=== PATIENT | male | born 1970 | race Hispanic/Latino ===

== ENCOUNTER 2024-03-24 11:09 | Emergency (ER) | payer MEDICAID, SELFPAY ==
[2024-03-24 11:11] VITALS: BP 108/74; PULSE 68; RESP 16; TEMP 36.5; O2SAT 99
--- NOTE | 2024-03-24 11:52 | CT_ITS ---
HISTORY: Kidney Stone. TECHNIQUE: Helically acquired images were obtained of the abdomen and pelvis without oral or IV contrast. A radiation dose optimization technique was used for this scan. 446 images. COMPARISON: None. FINDINGS: LOWER CHEST: Mild atelectasis and air trapping in the lung bases. BOWEL: Bowel nondilated. No periappendiceal inflammation. Colonic diverticulosis without focal pericolonic inflammatory change. PERITONEUM: No significant free fluid. LIVER: Unremarkable. GALLBLADDER/BILIARY TREE: Gallbladder present. SPLEEN/PANCREAS/ADRENAL GLANDS: Nonenlarged. KIDNEYS AND URETERS: No nephrolithiasis or obstructing ureteral calculus. VESSELS: No abdominal aortic aneurysm. PELVIC ORGANS: No pelvic masses. BONES: Mild degenerative change. CT/Abdomen/Pelvis without Cont IMPRESSION: Negative examination for renal stone. Colonic diverticulosis without acute diverticulitis. Electronically Signed: Kamille Richard MD at 13:05 EDT ,
--- NOTE | 2024-03-24 11:57 | EDS_ITS ---
HPI History of Present Illness Chief Complaint: Flank Pain Informant: patient Narrative Narrative: Formal [place]araguan interpretation service used. 2 months nontraumatic back pain with increasing urine frequency. No fevers or chills. Intermittent dizziness. No nausea or vomiting. No abdominal pain. History of diabetes on Januvia. Reported thought it would get better. No radicular pain. No allergies and medications. Appendectomy 8 [address] ago[address] He drove himself here. Also reports discomfort into his right shoulder. Denies abdominal pain. PFSH PFSH Allergy/AdvReac Type Severity Reaction Status Date / Time No Known Allergies Allergy Verified 03/24/24 11:11 Social History Smoking Status: Unknown if ever smoked ROS ROS ED Constitutional Constitutional ED: Denies chills, fever(s) or sweats Eyes Eyes: Denies change in vision ENT ENT ED: Denies dysphagia or sore throat Cardiovascular Cardiovascular: Denies chest pain, leg edema, palpitations or racing heartbeat Respiratory/Chest Respiratory/Chest: Denies cough, dyspnea or dyspnea on exertion Gastrointestinal Gastrointestinal: Denies abdominal pain, diarrhea, nausea or vomiting Genitourinary Genitourinary ED: Reports urinary frequency; Denies dysuria or hematuria Musculoskeletal Musculoskeletal: Reports back pain; Denies extremity pain or neck pain Integumentary Denies rash or wounds Neurologic Neurologic: Denies headache(s), paresthesias or weakness EXAM Physical Exam Const Vital Signs: 03/24/24 11:11 03/24/24 13:10 Temperature 97.7 F L Temperature Source Temporal Pulse Rate 68 78 Respiratory Rate 16 14 Blood Pressure 108/74 Blood Pressure Mean 85 Pulse Ox 99 99 Oxygen Delivery Method Room Air Positive well nourished and well developed Constitutional Narrative: Nontoxic General Appearance ED: well developed and NAD HEENT Reports moist mucous membranes normocephalic and atraumatic Eyes EOMs intact bilaterally and conjunctivae normal General Eye ED: Yes normal appearance of both eyes Neck no lymphadenopathy and supple General: Negative for tenderness Chest Wall Chest: Negative for tenderness Resp normal respiratory effort and normal air movement Effort and Inspection: symmetric chest movement; Negative for respiratory distress Cardio regular rate, regular rhythm and no murmurs Peripheral Pulses: pulses 2+ throughout GI normal to inspection, nondistended, normoactive bowel sounds and non-tender GI Narrative: Negative Bañuelso's or McBurney's tenderness. Palpation: Negative for guarding or rebound tenderness present Back/Spine no thoracic nor lumbar tenderness Back/Spine Narrative: Mild pain across upper flank region left greater than right. No rash. Straight leg test negative. Extremity normal to inspection General Extremety ED: Negative for edema or tenderness General Extremity: Negative for edema Neuro oriented x3 and no sensory deficits noted Sensorium / Orientation: awake and alert Skin no rashes or lesions noted and no wounds MDM MDM MDM Narrative Medical decision making narrative: Interventions / MDM: Differential diagnosis: Diabetes, urine frequency Diagnosis considered but do not suspect: DKA, normal gap, UTI however labs normal. Kidney stone however CT negative. My EKG interpretation: N/A Imaging independently reviewed and interpreted by myself: Flank CT: No acute process. Diverticulosis without diverticulitis. Also read by radiology. No renal stones noted. External documents reviewed: N/A Test considered but not ordered:N/A ED course: Vital stable nontoxic. 2 months with worsening urine frequency with pain. Basic labs urine and urine culture. Flank CT ordered. Toradol ordered for symptom control. 1345: Results all discussed with translation service with the patient. CT scan negative labs only noting hyperglycemia of 257 glucose. Gap was normal. White count 4.9. Creatinine 0.72. Urine without infection. Noted glucose with his elevated blood glucose. Discussed further he does not have a PCP here. He is on Janumet prescribed by his physician in [place]. It is sent here for him. He is requesting urology follow-up. He does have healthcare coverage. Discussed his sugars normally 140 back home. He will possibly need added medications for his diabetes. He does report mild polydipsia also. He is not in DKA. Provided prescription for Motrin to help with his back. He is given follow-up as an outpatient. All questions were answered. Re-evaluation: stable Disposition discussed with patient/family/significant other: Patient Case discussed with consulting clinician: N/A This note was generated with [employer] dictation software. It may contain incorrect words, spelling, and punctuation that were not noted in checking the note before signing. Lab Data Attestation: I reviewed the patient's lab results. Labs: Laboratory Results - last 24 hr 03/24/24 03/24/24 11:23 12:05 WBC 4.9 RBC 4.79 Hgb 14.2 Hct 41.2 MCV 86.0 MCH 29.6 MCHC 34.5 RDW Std Deviation 38.7 RDW Coeff of Pavel 12.2 Plt Count 199 MPV 11.4 Immature Gran % (Auto) 0.200 Neut % (Auto) 62.0 Lymph % (Auto) 24.3 Giles % (Auto) 9.1 Eos % (Auto) 4.0 Baso % (Auto) 0.4 Absolute Neuts (auto) 3.1 Absolute Lymphs (auto) 1.20 Nucleated RBC % 0 Sodium 139 Potassium 3.6 Chloride 104 Carbon Dioxide 31.0 Anion Gap 5 BUN 17 Creatinine 0.72 Est GFR (MDRD) Af Amer 148 Est GFR (MDRD) Non-Af 123 BUN/Creatinine Ratio 23.7 H Glucose 257 H Calcium 9.0 Urine Color Yellow Urine Clarity Sl. Cloudy Urine pH 8.0 Ur Specific [place] 1.015 Urine Protein Negative Urine Glucose (UA) 1000 H Urine Ketones Negative Urine Occult Blood Negative Urine Nitrite Negative Urine Bilirubin Negative Urine Urobilinogen Normal Ur Leukocyte Esterase Negative Urine RBC 0 SEEN Urine WBC 0 SEEN Ur Squamous Epith Cells 0 SEEN Amorphous Sediment 2+ Urine Bacteria 0 SEEN Urine Mucus 0 SEEN Radiography Diagnostic Testing: Clinical Impression(s) from Imaging Studies Abdomen/Pelvis CT 03/24/24 11:52 IMPRESSION: Negative examination for renal stone. Colonic diverticulosis without acute diverticulitis. Electronically Signed: Kamille Richard MD at 13:05 EDT Reading Location ID and State: [facility] / [place] Tel , Service support , Discharge Plan Triage Chief Complaint: Flank Pain ED Provider: Tony Ramirez Dx/Rx/DC Orders Clinical Impression: Urine frequency, Hyperglycemia due to diabetes mellitus, Back pain Instructions: Diabetes Bladder Control, Treatment of Diabetes Primary Care Provider: Care Physician,No Primary Referrals: Nikita Poole MD [Med Staff - Facing Cutting Machine Operator] - 1 Week Yves Carty MD [Med Staff - Active Staff] - 1-2 Weeks Care Physician,No Primary [Primary Care Provider] - Activity Restrictions/Additional Instructions: CT scan negative. Urine negative for infection. Labs glucose 257. Creatinine 0.72. Print Language: Nicaraguan Disposition Disposition: Home, Self Care
[2024-03-24 11:59] LABS: Absolute Neutrophil Count 3.1 X10^3/uL (2.0-7.7); Basophil# 0.02 X10^3/uL; Basophil% 0.4 % (0-1); Hematocrit 41.2 % (40-54); Hemoglobin 14.2 g/dL (13.0-16.5); Lymphocyte % 24.3 % (19-41); Mean Corp Hgb Conc 34.5 g/dL (32-36); Mean Corpuscular Hgb 29.6 pg (27.0-32.0); Mean Platelet Vol. 11.4 fl (6.2-12.0); Monocyte# 0.45 X10^3/uL; Monocyte% 9.1 % (0-10); NRBC Flagged by Analyzer 0 % (0-5); Neutrophil # 3.06 X10^3/uL (2.7-7.7); Platelet Count 199 K/mm3 (150-450); RBC Distribution Width CV 12.2 % (11.6-14.6); RBC Distribution Width SD 38.7 fl (35.1-43.9); Red Blood Count 4.79 M/mm3 (4.6-6.2); White Blood Count 4.9 K/mm3 (4.4-11.0)
[2024-03-24] MEDS: Ketorolac 15 MG/ML Vial IV (12:01)
[2024-03-24 12:10] LABS: Bacteria 0 SEEN /hpf (None Seen); Mucous, Urine 0 SEEN /hpf (<or=2+); Red Blood Cells-Urine 0 SEEN /hpf (0-5); Squamous Epithelial Cells - UA 0 SEEN /hpf (0-5); White Blood Cells 0 SEEN /hpf (0-5)
[2024-03-24 12:18] LABS: Color, Urine Yellow (Yellow); Glucose, Dipstick 1000 mg/dl (Normal); Ketone-Dipstick Negative (Negative); Leukocyte Esterase-Dipstick Negative /ul (Negative); Nitrite-Dipstick Negative (Negative); Occult Blood-Urine Negative /ul (Negative); Protein-Dipstick Negative (Negative); Specific Gravity, Urine 1.015 (1.002-1.030); Urine Bilirubin Dipstick Negative (Negative); Urine Clarity Sl. Cloudy (Clear); Urine Urobilinogen Normal (Normal)
[2024-03-24 12:22] LABS: Anion Gap 5 (5-15); BUN 17 mg/dL (7-18); BUN/Creat Ratio 23.7 RATIO (10-20); Chloride 104 mmol/L (98-107); Creatinine, Serum 0.72 mg/dL (0.70-1.30); EST Glomerular Filtration Rate 123 mL/min (>60); Est Glom Filt Rate - Afr Amer 148 mL/min (>60); Glucose 257 mg/dL (74-106); Potassium 3.6 mmol/L (3.5-5.1); Sodium Level 139 mmol/L (136-145)
[2024-03-24 12:24] LABS: Amorphous Sediment 2+
[2024-03-24 13:10] VITALS: PULSE 78; RESP 14; O2SAT 99
[2024-03-24 14:04] VITALS: BP 142/82; PULSE 76; RESP 14; TEMP 36.1; O2SAT 98
== END 2024-03-24 14:05 | disposition home or self-care (01) ==
PROVIDERS: Emergency Provider Emergency Medicine; Visit Provider Emergency Medicine
DX: R35.0 Frequency of micturition (principal); E11.65 Type 2 diabetes mellitus with hyperglycemia; K57.30 Diverticulosis of large intestine without perforation or abscess without bleeding; Z79.84 Long term (current) use of oral hypoglycemic drugs; N20.0 Calculus of kidney; M54.9 Dorsalgia, unspecified
CPT/HCPCS: 74176; 80048; 81001; 85025; 87086; 96374; 99282; A4216